=== PATIENT | male | born 1980 | race Caucasian/White ===

== ENCOUNTER → 2017-02-03 | Outpatient (CLI) | payer OTHER | END | disposition home or self-care (01) | LOC: CFH 11:50 → EDSTATUS 15:15 | PROVIDERS: ATTEND Nurse Practitioner | DX: E03.9 Hypothyroidism, unspecified (principal) | CPT/HCPCS: 76536 ==

== ENCOUNTER 2020-04-30 11:33 | Emergency (ER) | payer OTHER ==
[~2020-04-30] VITALS: Ht 188 cm; Wt 100.7 kg
--- NOTE | 2020-04-30 12:24 | NUR ---
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
[2020-04-30 12:30] VITALS: BP 138/75
[2020-04-30 12:50] LABS: BASOPHILS # (AUTO) 0.03 x10^3/uL (0-0.1); BASOPHILS % (AUTO) 0 % (0-1); EOSINOPHILS % (AUTO) 1 % (1-7); LYMPHOCYTES # (AUTO) 2.67 x10^3/uL (1-3.4); LYMPHOCYTES % (AUTO) 29 % (22-44); MD NO; MEAN CORPUSCULAR HEMOGLOBIN 29.1 pg (27.5-34.5); MEAN CORPUSCULAR HGB CONC 33.6 g/dL (33.2-36.2); MEAN CORPUSCULAR VOLUME 86.4 fL (81-97); MEAN PLATELET VOLUME 7.1 fL (7.4-10.4); MONOCYTES # (AUTO) 0.63 x10^3/uL (0.2-0.8); MONOCYTES % (AUTO) 7 % (2-9); NEUTROPHILS # (AUTO) 5.64 x10^3/uL (1.8-6.8); NEUTROPHILS % (AUTO) 62 % (42-75); PLATELET COUNT 272 x10^3/uL (130-400); RED BLOOD COUNT 5.22 x10^6/uL (4.38-5.82); RED CELL DISTRIBUTION WIDTH 13.1 % (9.4-14.8)
[2020-04-30 13:01] LABS: ALBUMIN 4.3 g/dL (3.4-5.0); ANION GAP 5 mmol/L (5-15); CALCIUM 9.3 mg/dL (8.5-10.1); CHLORIDE 107 mmol/L (98-107); CREATININE 1.08 mg/dL (0.7-1.3)
[2020-04-30] MEDS ORDERED: KETOROLAC 60 MG/2 ML ONE (14:10)
[2020-04-30 14:17] LABS: MICROSCOPIC NOT IND
[2020-04-30] MEDS ORDERED: KETOROLAC 30 MG/1 ML IM ONE (14:30)
--- NOTE | 2020-04-30 14:45 | NUR ---
WITH REASSESMENT PAIN IMPROVED TO 3/10
== END 2020-04-30 15:01 | disposition home or self-care (01) ==
LOC: ED 14:41
DX: K40.90 Unilateral inguinal hernia, without obstruction or gangrene, not specified as recurrent (principal); M54.5 Low back pain
CPT/HCPCS: 36415; 76870; 80048; 81003; 82040; 85025; 96372; 99284; J1885

== ENCOUNTER 2020-06-05 10:37 | Day surgery (SDC) | payer OTHER ==
[~2020-06-05] VITALS: Ht 188 cm; Wt 101.4 kg
[~2020-06-05 10:37] MED LIST: LEVO112T4 PO
[2020-06-05 10:55] VITALS: BP 149/87
[2020-06-05] MEDS ORDERED: LACTATED RINGERS 1,000 ML IV SCH (10:55)
[2020-06-05] MEDS ORDERED: CHLORHEXIDINE 15 ML UDC MM ONE (11:00)
[2020-06-05] MEDS ORDERED: PROMETHAZINE 25 MG/ML, 1ML IVPush PRN (11:30)
[2020-06-05] MEDS ORDERED: LABETALOL 5MG/ML, 20ML IV PRN (11:30)
[2020-06-05] MEDS ORDERED: HYDROmorphone 1 MG/ML, 1ML INJ IVPush PRN (11:30)
[2020-06-05] MEDS ORDERED: OXYcodone 5 MG/5 ML ORAL.SOL UDC PO PRN (11:30)
[2020-06-05] MEDS ORDERED: MEPERIDINE/PF 25MG/0.5ML IVPush PRN (11:30)
[2020-06-05] MEDS ORDERED: ONDANSETRON 2MG/ML, 2ML IVPush PRN (11:30)
[2020-06-05] MEDS ORDERED: ACETAMINOPHEN 325 MG TABLET PO PRN (11:30)
[2020-06-05] MEDS ORDERED: hydrALAzine 20 MG/ML, 1ML IV PRN (11:30)
[2020-06-05] MEDS ORDERED: MIDAZOLAM 1 MG/ML, 2ML ONE (12:26)
[2020-06-05] MEDS ORDERED: FENTANYL PF 250 MCG/5ML ONE (12:26)
[2020-06-05] MEDS ORDERED: BUPIVACAINE/PF-EPI 0.5% 1:200K ONE (13:21)
[2020-06-05] MEDS ORDERED: ROCURONIUM 10MG/ML,5ML ONE (13:27)
[2020-06-05] MEDS ORDERED: PROPOFOL 10 MG/ML, 20ML ONE (13:27)
[2020-06-05] MEDS ORDERED: DEXAMETHASONE 4 MG/ML, 1ML ONE ×3 (13:27→13:44)
[2020-06-05] MEDS ORDERED: CEFAZOLIN 1,000 MG ONE ×2 (13:44)
[2020-06-05] MEDS ORDERED: ONDANSETRON 2MG/ML, 2ML ONE (14:04)
[2020-06-05] MEDS ORDERED: KETOROLAC 30 MG/1 ML ONE (14:04)
[2020-06-05] MEDS ORDERED: NEOSTIGMINE 1 MG/ML, 10ML ONE (14:11)
[2020-06-05] MEDS ORDERED: GLYCOPYRROLATE 0.2MG/1ML, 5ML ONE (14:11)
[2020-06-05] MEDS ORDERED: FENTANYL PF 100 MCG/2ML ONE (14:28)
[2020-06-05] MEDS ORDERED: OXYcodone 5 MG/5 ML ORAL.SOL UDC ONE (14:28)
[2020-06-05] MEDS: FENTANYL PF 100 MCG/2ML IV PRN ×2 (14:30→14:40)
[2020-06-05] MEDS ORDERED: LABETALOL 5MG/ML, 20ML ONE (14:53)
== END 2020-06-05 18:10 | disposition home or self-care (01) ==
LOC: OUT 10:37
PROVIDERS: ATTEND Colon & Rectal Surgery
DX: K40.90 Unilateral inguinal hernia, without obstruction or gangrene, not specified as recurrent (principal); Z11.59 Encounter for screening for other viral diseases; D17.6 Benign lipomatous neoplasm of spermatic cord; J45.909 Unspecified asthma, uncomplicated; E03.9 Hypothyroidism, unspecified; Z79.890 Hormone replacement therapy; Z88.5 Allergy status to narcotic agent
CPT/HCPCS: 36415; 49650; 87635; C1727; C1729; C1781; J0690; J1100; J1885; J2250; J2405; J2704; J2710; J3010